=== PATIENT | female | born 1980 | race Caucasian/White ===

== ENCOUNTER 2021-03-23 16:13 | Outpatient (CLI) | payer OTHER, SELFPAY ==
--- NOTE | ~2021-03-23 | XR_ITS ---
XR lumbar spine 2-3V DATE: 03/23/2021 16:50 INDICATION: Back pain. Polyarthralgia. TECHNIQUE: AP, lateral, coned lateral lumbosacral views COMPARISON: None FINDINGS: There is mild levoscoliosis of the lower thoracic and lumbar spine. No fracture or bone destruction or spondylolisthesis. The lumbar pedicles are intact. There is moderately prominent degenerative disc disease at L2-3 and L3-4 and to a lesser extent L4-5. The sacroiliac joints are intact. IMPRESSION: Multilevel degenerative disc disease Mild levoscoliosis Reviewed, dictated and finalized at location A.
--- NOTE | ~2021-03-23 | XR_ITS ---
XR hip BI wo pelvis DATE: 03/23/2021 16:50 INDICATION: Back pain radiating to both hips TECHNIQUE: AP and lateral views of each hip COMPARISON: None FINDINGS: No fracture, dislocation, avascular necrosis or bone destruction of either hip. Hip joint s paces are symmetric and well preserved. The pubic symphysis and sacroiliac joints are intact. IMPRESSION: Negative Reviewed, dictated and finalized at location A. IMPRESSION: Negative
== END 2021-03-23 16:14 | disposition home or self-care (01) ==
LOC: CHSIMG 16:21
PROVIDERS: PCP Internal Medicine; Visit Provider Internal Medicine
DX: M25.50 Pain in unspecified joint (principal); M25.552 Pain in left hip; M25.551 Pain in right hip
CPT/HCPCS: 72100; 73521

== ENCOUNTER 2021-07-09 09:55 | Outpatient (CLI) | payer OTHER, SELFPAY ==
--- NOTE | ~2021-07-09 | XR_ITS ---
EXAMINATION: XR elbow LT min 3V DATE: 07/09/2021 10:12 INDICATION: Left elbow pain TECHNIQUE: Anteroposterior, two oblique and lateral views of the left elbow were obtained. COMPARISON: None. FINDINGS: Alignment is normal. No fracture or joint effusion. Joint spaces are normal. Soft tissues are unremar kable. IMPRESSION: 1. Negative left elbow radiographs. Reviewed, dictated and finalized at location A.
== END 2021-07-09 09:56 | disposition home or self-care (01) ==
LOC: CHSIMG 09:58
PROVIDERS: PCP Internal Medicine; Visit Provider Internal Medicine
DX: M25.522 Pain in left elbow (principal)
CPT/HCPCS: 73080

== ENCOUNTER 2021-09-04 10:36 | Emergency (ER) | payer OTHER, SELFPAY ==
[2021-09-04 11:00] VITALS: BP 123/95; PULSE 72; RESP 18; TEMP 36.3; O2SAT 97
[2021-09-04] MEDS: IBUPROFEN 400 MG TABLET 800 MG PO (11:45)
[2021-09-04] MEDS: LIDOCAINE HCL 2% PF INJ 5 ML VIAL 2 ML INFILTRATE (11:45)
[2021-09-04] MEDS: cefTRIAXone 1 GM VIAL IM (12:10)
--- NOTE | 2021-09-04 12:22 | ED.ANIMALBIT ---
HPI - Animal Bite General Source: patient and RN notes reviewed Mode of arrival: ambulatory Limitations: no limitations History of Present Illness complaint: animal bite (several dog bites to face and nose. no other acute injury) Onset (ago): hour(s) (1) Description of animal: household pet Mechanism: bite Location: face Pain description: dull Severity scale (1-10): 4 Context: other (was grooming the dog.) Associated symptoms: none Treatments prior to arrival: other (none.) Related Data Patient tetanus UTD: Yes Home Medications Medication Instructions Recorded Confirmed Zyrtec 1 caplet BYMOUTH DAILY 09/04/21 09/04/21 escitalopram oxalate 20 mg PO DAILY 09/04/21 09/04/21 Allergies Allergy/AdvReac Type Severity Reaction Status Date / Time Penicillins Allergy Mild ANAPHYLAXIC Verified 03/16/11 10:42 REACTION Sulfa (Sulfonamide Allergy Mild HIVES-FEVER Verified 03/16/11 10:42 Antibiotics) Review of Systems Review of Systems: All systems reviewed & are unremarkable except as noted in HPI and below PMFSH Past Medical History Medical History Dog bite of face Exam Const: General: no acute distress and alert Orientation/consciousness: patient oriented x3 HENMT: Ears: external ears normal and TM's normal bilaterally General nose exam: Normal external nose present Mouth: Yes lip normal Teeth and gingiva: dentition normal Throat: posterior oropharynx normal Other: Right pre-auricular 2/3 cm circular flap superficial laceration; left distal nasal septum 2/3 cm laceration, oozing and minimal gaping; left lower orbit superficial 3/4cm well approximated laceration; left nasolabial fold superficial, well approximated laceration 3/4 cm. Eyes: Conjunctivae: conjunctivae normal Pupils: Equal, round and reactive pupils present EOM: EOMs intact bilaterally Neck: Neck: normal visual inspection and no lymphadenopathy Chest: Chest palpation & inspection: normal inspection of the chest Resp: Effort & Inspection: normal respiratory effort Auscultation: clear to auscultation bilaterally Cardio: Rate: regular rate Rhythm: regular rhythm GI: GI Palp: Yes Soft to palpation and No Tenderness to palpation present (GI) Percussion: Yes normal to percussion Auscultation: normal bowel sounds : General: Yes no CVA tenderness Back/Spine/Pelvis: Back: no CVA tenderness Skin: General skin exam: normal color Neuro: General: patient oriented x3, moves all extremities, no meningeal signs, no focal motor deficits and CN's II-XI intact bilaterally Extrem: General: normal to inspection and no pedal edema Psych: Appearance: well kempt Mental Status: mental status grossly normal Affect: normal affect Attitude: cooperative Thought content: Yes Normal thought content present Course Course Emergency Course: Post laceratios repaired and pain control the pt was d/c home. Reevaluation(s) Reevaluation #1: VSS. pt was comfortable in the ED. Date: 09/04/21 Time: 11:34 Vital Signs Vital signs: Vital Signs Temperature 36.3 C L 09/04/21 11:00 Pulse Rate 72 09/04/21 11:00 Respiratory Rate 18 09/04/21 11:00 Blood Pressure 123/95 H 09/04/21 11:00 Pulse Oximetry 97 09/04/21 11:00 Temperature 36.3 C L 09/04/21 12:46 Pulse Rate 72 09/04/21 12:46 Respiratory Rate 20 09/04/21 12:46 Blood Pressure 133/96 H 09/04/21 12:46 Pulse Oximetry 97 09/04/21 12:46 Procedures Laceration 4 facial lacerations: Date: 09/04/21 Time: 11:30 Site: face (1. right pre-auricular 2/3 cm. 2. right distal nasal septum 2/3 cm lac. 3. Left lower orbit 3/4 cm lac. 4. left naso-labial 3/4 cm lac.) Side (If applicable): left and right Size (cm): 0.66 Description: linear, flap, irregular and clean Depth: simple, single layer Local Anesthetic: lidocaine 2% Amount of anesthesia used (mL): 1
[2021-09-04 12:46] VITALS: BP 133/96; PULSE 72; RESP 20; TEMP 36.3; O2SAT 97
== END 2021-09-04 12:56 | disposition home or self-care (01) ==
PROVIDERS: Emergency Provider Emergency Medicine; PCP Internal Medicine
DX: S01.85XA Open bite of other part of head, initial encounter (principal); W54.0XXA Bitten by dog, initial encounter
CPT/HCPCS: 13151; 96372; 99283; A9270; J0696

== ENCOUNTER 2022-02-23 08:35 | Outpatient (CLI) | payer OTHER, SELFPAY ==
--- NOTE | ~2022-02-23 | MR_ITS ---
EXAMINATION: MR hip LT wo con DATE: 02/23/2022 09:39 INDICATION: Left hip pain TECHNIQUE: Magnetic resonance imaging (MRI) of the left hip was performed without intravenous contra st. Sequences included full-field axial PD-weighted FS FSE and T1-weighted FSE, coronal of the pelvis with PD-weighted FS FSE, small field of view of the left hip with axial PD-weighted FS FSE, sagitta l PD-weighted FS FSE and coronal PD weighted FS FSE. Additional radial T1-weighted FGR oriented ortho gonal to the acetabular rim were obtained for evaluation of the labrum. COMPARISON: Radiographs dated 03/23/2021 FINDINGS: Bones/labrum/cartilage: Alignment is normal. There is a serpiginous double line sign underlying the majority of the acetabula r covered portion of the left femoral head consistent with avascular necrosis. No evident flattening of the articular cortex. No fracture or pathologic marrow replacing process. Left acetabular labrum i s normal. Articular cartilage is normal. Fluid: Unilateral small left hip joint effusion. No bursitis or other abnormal fluid collections. Soft tissues: Normal and symmetric muscle bulk and signal in the pelvis and visualized proximal thighs. The iliopso as, gluteal and proximal hamstring tendons are normal. The uterus is not identified and has likely be en surgically resected. Limited evaluation of visceral organs of the pelvis is otherwise unremarkable . No pathologically enlarged pelvic/inguinal lymphadenopathy. IMPRESSION: 1. 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 Reviewed, dictated and finalized at location A.
== END 2022-02-23 08:36 | disposition home or self-care (01) ==
LOC: CHSIMG 08:38
PROVIDERS: PCP Internal Medicine; Visit Provider Internal Medicine
DX: M25.552 Pain in left hip (principal); M87.9 Osteonecrosis, unspecified
CPT/HCPCS: 73721

== ENCOUNTER 2022-03-30 06:55 | Outpatient (CLI) | payer OTHER, SELFPAY ==
--- NOTE | ~2022-03-30 | MR_ITS ---
EXAMINATION: MR lumbar spine wo con DATE: 03/30/2022 08:13 INDICATION: Back pain with radiculopathy. TECHNIQUE: Magnetic resonance imaging (MRI) of the lumbar spine was performed without intravenous con trast. Sequences included sagittal T2-weighted FSE, sagittal T2-weighted FS FSE, sagittal T1-weighted FSE, and axial T2-weighted FSE. COMPARISON: Lumbar spine radiographs 03/23/2021 FINDINGS: There is 13 degrees levoscoliosis of lumbar spine. Vertebral body heights are normal. There is mildly decreased disc height at L2-L3 and L3-L4 and moderately decreased disc height at L4-L5. Th e distal spinal cord signal intensity is normal. The conus medullaris is at L1. The following disc le vels are specifically discussed: L1-L2: The disc does not extend beyond the endplate margin. There is no facet joint osteoarthritis. T here is no neural foraminal stenosis. There is no central canal stenosis. L2-L3: The disc is bulging. There is mild bilateral facet joint osteoarthritis. There is mild bilater al neural foraminal stenosis. There is mild central canal stenosis. L3-L4: The disc is bulging. There is mild bilateral facet joint osteoarthritis. There is mild bilater al neural foraminal stenosis. There is mild central canal stenosis. L4-L5: The disc is bulging and has an annular fissure. There is moderate right and mild left facet cheryl int osteoarthritis. There is moderate bilateral neural foraminal stenosis. There is mild central marline l stenosis. L5-S1: The disc does not extend beyond the endplate margin. There is moderate bilateral facet joint o steoarthritis. There is no neural foraminal stenosis. There is no central canal stenosis. IMPRESSION: 1. Moderate lumbar spondylosis. 2. Lumbar levoscoliosis. Reviewed, dictated and finalized at location A.
--- NOTE | ~2022-03-30 | MR_ITS ---
EXAMINATION: MR hip RT wo con DATE: 03/30/2022 08:13 INDICATION: Back pain with radiculopathy. Right hip avascular necrosis. TECHNIQUE: Magnetic resonance imaging (MRI) of the right hip was performed without intravenous contr ast. Sequences included full-field axial PD-weighted FS FSE and T1-weighted FSE, coronal of the pelvi s with PD-weighted FS FSE, small field of view of the right hip with axial PD-weighted FS FSE, sagit wan PD-weighted FS FSE and coronal PD weighted FS FSE. Additional radial T1-weighted FGR oriented ort hogonal to the acetabular rim were obtained for evaluation of the labrum. COMPARISON: Left hip MRI dated 02/23/2022 FINDINGS: Bones/labrum/cartilage: Bone alignment is normal. No significant interval change in edema at the left femoral head associated with a large region of osteonecrosis without evident collapse of the articular cortex. Marrow signal is otherwise normal. No osteonecrosis at the right hip. There is a tear along the chondral labral ju nction slightly anterior to the 12:00 position of the superolateral right acetabular labrum as well a s more anteriorly at the 1:00 position of the anterosuperior labrum. Articular cartilage is otherwis e normal at the right hip. Fluid: Persistent unilateral small left hip joint effusion. No bursitis or other abnormal fluid collections. Soft tissues: Normal and symmetric muscle bulk and signal in the pelvis and visualized proximal thighs. The iliopso as, gluteal and proximal hamstring tendons are normal. The uterus is not identified and has likely be en surgically resected. Limited evaluation of visceral organs of the pelvis is otherwise unremarka ble. No pathologically enlarged pelvic/inguinal lymphadenopathy. IMPRESSION: 1. Small tears at the chondral labral junction of the anterosuperior and superolateral right acetabul ar labrum. 2. Unchanged avascular necrosis at the left femoral head without evident collapse of the articular hammond rface but with likely secondary unilateral small left hip joint effusion. No avascular necrosis at th e right hip. Reviewed, dictated and finalized at location B. IMPRESSION: 1. Small tears at the chondral labral junction of the anterosuperior and supero lateral right acetabular labrum. 2. Unchanged avascular necrosis at the left femoral head without evident collap se of the articular surface but with likely secondary unilateral small left hip joint effusion. No avascular necrosis at the right hip.
== END 2022-03-30 06:56 | disposition home or self-care (01) ==
LOC: CHSIMG 06:56
PROVIDERS: PCP Internal Medicine; Visit Provider Internal Medicine
DX: M54.9 Dorsalgia, unspecified (principal); M54.10 Radiculopathy, site unspecified
CPT/HCPCS: 72148; 73721

== ENCOUNTER 2022-11-06 10:12 | Outpatient (CLI) | payer OTHER, SELFPAY ==
[2022-11-06 10:42] LABS: Basophils Absolute Auto 0.08 K/mm3 (0.00-0.10); Basophils Percent Auto 0.8 % (0.0-1.0); Eosinophils Absolute Auto 0.53 K/mm3 (0.02-0.50); Eosinophils Percent Auto 5.5 % (1.0-6.0); Hemoglobin 14.2 g/dL (12.0-15.0); Immature Granulocyte Absolute 0.03 K/mm3 (0.00-0.00); Immature Granulocyte Percent A 0.3 % (0.0-0.0); Lymphocytes Absolute Auto 3.23 K/mm3 (1.10-4.50); Lymphocytes Percent Auto 33.5 % (18.0-42.0); Mean Corpuscular HGB Conc 33.8 g/dL (32.0-36.0); Mean Corpuscular Hemoglobin 30.9 pg (27.0-31.0); Mean Corpuscular Volume 91.5 fL (78.0-102.0); Monocytes Absolute Auto 0.65 K/mm3 (0.10-0.90); Monocytes Percent Auto 6.7 % (2.0-11.0); Neutrophils Absolute Auto 5.1 K/mm3 (1.7-7.2); Neutrophils Percent Auto 53.2 % (50.0-70.0); Platelet Count Result 335 K/mm3 (150-420); Red Blood Count 4.59 M/mm3 (4.20-5.40); Red Cell Distribution Width 12.5 % (11.6-14.4); White Blood Count 9.7 K/mm3 (4.8-10.8)
[2022-11-06 10:55] LABS: CRP < 0.5 mg/dL (0.0-0.9)
[2022-11-06 11:30] LABS: Erythrocyte Sedimentation Rate 13 mm/hr (0-15)
== END 2022-11-06 10:13 | disposition home or self-care (01) ==
LOC: CHSLAB 10:15
PROVIDERS: PCP Internal Medicine
DX: Z01.818 Encounter for other preprocedural examination (principal)
CPT/HCPCS: 36415; 85025; 85652; 86140

== ENCOUNTER 2023-04-11 08:57 | Outpatient (RCR) | payer OTHER, SELFPAY ==
--- NOTE | 2023-04-11 10:04 | OPREHPOC ---
Outpatient Therapy Plan of Care This is a Multidisciplinary Plan of Care that may contain components documented by all disciplines (PT, OT, and ST.) PT Problem 1 PT Problem #1 Knowledge Deficit PT Goal 1 Goal Patient to demonstrate independence with HEP Target Visit 6 PT Problem 2 PT Problem #2 Pain PT Goal 1 Goal 1. patient to report highest pain at 2/10 2. patient to report ability to sleep with no disturbance due to hip pain Target Visit 12 PT Problem 3 PT Problem #3 Impaired Flexibility PT Goal 1 Goal Patient to demonstrate 20 deg of L HS flexibility to improve ability to ambulate for prolonged periods Target Visit 12 Progress Met PT Problem 4 PT Problem #4 Impaired Strength PT Goal 1 Goal Patient to demonstrate 5/5 strength of L LE to improve ability to navigate stairs Target Visit 12 PT Problem 5 PT Problem #5 Impaired Functional Mobil PT Goal 1 Goal 1. Patient to report ability to stand for >2 hours for work duties 2. Patient to report ability to complete house hold chores with no increase in pain Target Visit 12
--- NOTE | 2023-04-11 10:04 | PTOPEVAL1 ---
Assessment and note entered by Corinne Michel DPT Evaluation Information Diagnosis L hip pain Onset 08/05/22 Subjective Information Patient reports she had a hip replacement on 08/05 following AVN. She reports she had home health for about 6 weeks. She reports she has had pain since. She reports difficulty with steps, walking prolonged distances, sleeping and standing for house hold tasks. She report she was able to complete all activities but did have pain prior to surgery. 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 She sees pain management on 04/21/23. Reported Pain Level Pain Score 6: Self Report Assessment PT Clinical Summary Patient is a 43 year old female who presents to PT with L hip pain s/p CLOTILDE in July 2022. Patient tdemonstrates decrease L hip strength, decreased L hip flexibility and impaired gait mechanincs limiting her ability to navigate stairs, sleep, and complete house hold tasks. She would benefit from skilled PT to address impairments and return to PLOF. Plan of Care Interventions Electrical Stimulation,Gait Training,Hot Pack/Cold Pack,Manual Therapy,Neuro Re-education,Patient/ Caregiver Educati,Therapeutic Activities, Therapeutic Exercise,Self-Care/Home Management PT Services Indicated Yes Treatment Frequency and 2x weekly for 12 visits Duration These treatments will address the objective and functional deficits as defined above. The patient will be advanced safely and appropriately in order for the patient to progress towards his/her prior level of function. Additional exercises will be introduced and as well as a comprehensive home exercise program upon discharge, if needed, ?to ensure carryover of functional gains achieved in the clinic. This treatment plan has been reviewed and agreement upon by the patient.
== END 2023-04-11 11:00 | disposition home or self-care (01) ==
LOC: CHSPT 08:57
PROVIDERS: Visit Provider Orthopaedic Surgery
DX: Z47.1 Aftercare following joint replacement surgery (principal); Z48.817 Encounter for surgical aftercare following surgery on the skin and subcutaneous tissue; Z96.642 Presence of left artificial hip joint
CPT/HCPCS: 97014; 97110; 97140; 97161; G0283

== ENCOUNTER 2023-10-04 19:40 | Emergency (ER) | payer OTHER, SELFPAY ==
--- NOTE | ~2023-10-04 | XR_ITS ---
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 RESULT: Lines, tubes, and devices: None. Lungs and pleura: Granulomatous calcification, otherwise clear. Cardiomediastinal silhouette: Prominent central pulmonary arteries as can be seen with pulmonary art erial hypertension. Other: No acute osseous or upper abdominal finding. IMPRESSION: No acute cardiopulmonary process. Reviewed, dictated and finalized at location K. IANCE COUNSELOR
[2023-10-04 19:40] VITALS: BP 118/76; PULSE 81; RESP 20; TEMP 36; O2SAT 98
--- NOTE | 2023-10-04 19:52 | ED.ALLEREA ---
HPI - Allergic Reaction General Chief complaint: Allergic Reaction Stated complaint: allergic reaction Time Seen by Provider: 10/04/23 19:41 Source: patient Mode of arrival: ambulatory Limitations: no limitations History of Present Illness HPI narrative: Patient is a 43-year-old female with new Omnicef today. She had a bronchitis and her doctor gave her this medication. She is having a flare of her asthma at this time. Some shortness of breath and coughing. She feels this is possibly an allergic reaction. complaint: allergic reaction Onset (ago): hour(s) (3) Exposure: medication Known history of allergy to: Penicillin allergy which can cross react to Omnicef from time to time Symptoms: difficulty breathing Severity: mild Treatment prior to arrival: benadryl Previous Allergic Reaction History: anaphylaxis Related Data Home Medications Medication Instructions Recorded Confirmed Zyrtec 1 caplet BYMOUTH DAILY 09/04/21 09/04/21 Allergies Allergy/AdvReac Type Severity Reaction Status Date / Time cefdinir Allergy Severe Difficulty Verified 10/04/23 20:08 Breathing Penicillins Allergy Severe ANAPHYLAXIC Verified 10/04/23 20:08 REACTION Sulfa (Sulfonamide Allergy Intermediate HIVES-FEVER Verified 10/04/23 20:08 Antibiotics) Review of Systems Review of Systems: All systems reviewed & are unremarkable except as noted in HPI and below Constitutional: Constitutional: Reports no additional constitutional complaints Eyes: Eyes: Reports no additional eye complaints ENT: Reports system reviewed and no additional complaints, except as documented Cardiovascular: Cardiovascular: Reports no additional cardiovascular complaints Respiratory: Respiratory: Reports no additional respiratory complaints Gastrointestinal: Gastrointestinal: Reports no additional gastrointestinal complaints Genitourinary: Genitourinary: Reports no additional female genitourinary complaints Musculoskeletal: Musculoskeletal: Reports no additional musculoskeletal complaints Integumentary/Breasts: Skin/Breast: Reports system reviewed and no additional complaints, except as docu Neurologic: Reports system reviewed and no additional complaints, except as documented Psychiatric: Psychiatric: Reports no additional psychiatric complaints Endocrine: Endocrine: Reports no additional endocrine complaints Hematologic/Lymphatic: Hematologic/Lymphatic: Reports no additional hematologic/lymphatic complaints Allergic/Immunologic: Allergic/Immunologic: Reports no additional allergic/immunologic complaints PMFSH Past Medical History Medical History Dog bite of face Exam Const: General: healthy appearing Nutritional Appearance: well nourished Orientation/consciousness: patient oriented x3 HENMT: Head: normal to inspection Ears: external ears normal Face/Nose/Sinus: Normal external nose present Eyes: Conjunctivae: conjunctivae normal Pupils: Equal, round and reactive pupils present EOM: EOMs intact bilaterally Neck: Neck: normal visual inspection Chest: Chest palpation & inspection: normal inspection of the chest Resp: Effort & Inspection: normal respiratory effort and not labored Auscultation: clear to auscultation bilaterally, no crackles, rhonchi, wheezes and diminished lung sounds Cardio: Rate: regular rate Rhythm: regular rhythm Heart sounds: no murmurs GI: Inspection: non-distended GI Palp: Yes Soft to palpation, No Tenderness to palpation present (GI) and No Guarding due to palpation present (GI) Auscultation: normal bowel sounds : General: Yes bladder normal to palpation Back/Spine/Pelvis: Back: no CVA tenderness Skin: General skin exam: normal color Rashes: no rashes Wounds: no wounds Neuro: General: patient oriented x3 Cranial nerves: Yes Nystagmus not present Speech: normal speech Extrem: General: normal to inspection Psych: Mental Stat
[2023-10-04] MEDS: predniSONE 20 MG TABLET 40 MG PO (19:57)
[2023-10-04] MEDS: ALBUTEROL SULFATE NEB 2.5 MG/3 ML INH INHALATION (20:01)
[2023-10-04] MEDS: DOXYCYCLINE HYCLATE 100 MG TABLET PO (20:51)
[2023-10-04 21:33] VITALS: PULSE 94; RESP 20; O2SAT 98
== END 2023-10-04 22:12 | disposition home or self-care (01) ==
LOC: CHSED 20:13
PROVIDERS: Emergency Provider Emergency Medicine; PCP Internal Medicine
DX: J40 Bronchitis, not specified as acute or chronic (principal); T78.40XA Allergy, unspecified, initial encounter
CPT/HCPCS: 71046; 99283; A9270; J7512

== ENCOUNTER 2023-12-01 09:18 | Outpatient (CLI) | payer OTHER, SELFPAY ==
--- NOTE | ~2023-12-01 | MR_ITS ---
MRI of the lumbar spine Clinical History: Back pain Technique: Axial T2-weighted images, and sagittal T1-weighted, T2-weighted, and and T2 fat-sat images were acquired. Findings: There is no fracture or subluxation of the lumbar spine. Vertebral bodies maintain normal h eight and alignment. No suspicious bone marrow signal abnormality seen. At L1-L2, there is minimal disc bulge. There is minimal facet arthropathy. No central canal stenosis or neural foraminal narrowing. At L2-L3, there is minimal disc bulge and mild facet arthropathy. No central canal stenosis or neural foraminal narrowing. At L3-L4, there is mild disc bulge and mild to moderate facet arthropathy. No central canal stenosis. There is mild bilateral neural foraminal narrowing. At L4-L5, there is mild disc bulge with mild to moderate facet arthropathy. No central canal stenosis . There is moderate to severe left neural foraminal narrowing, and moderate right neural foraminal na rrowing. At L5-S1, there is no disc bulge or herniation. There is mild to moderate facet arthropathy. No centr al canal stenosis or neural foraminal narrowing. Paravertebral soft tissues are unremarkable. Impression: Mild degenerative spondylosis overall, as detailed above, worst at L4-L5. Reviewed, dictated and finalized at [facility]. HEALTH RN Impression: Mild degenerative spondylosis overall, as detailed above, worst at L4-L5.
== END 2023-12-01 09:19 | disposition home or self-care (01) ==
LOC: CHSIMG 09:21
PROVIDERS: PCP Internal Medicine
DX: M54.50 Low back pain, unspecified (principal); M43.06 Spondylolysis, lumbar region
CPT/HCPCS: 72148

== ENCOUNTER 2024-03-13 19:19 | Emergency (ER) | payer OTHER, SELFPAY ==
--- NOTE | ~2024-03-13 | XR_ITS ---
EXAM: XR hand LT min 3V DATE: 03/13/2024 19:30 HISTORY: 3RD DIGIT PAIN,FLICKED SOMETHING AND HURTS NOW . COMPARISON: None available. FINDINGS: Normal mineralization. No fracture or dislocation. No lytic or blastic lesion. Joint space s are maintained. No erosion or periosteal change. Soft tissues within normal limits. IMPRESSION: No acute osseous finding in the left hand. Reviewed, dictated and finalized at location K.
[2024-03-13 19:18] VITALS: BP 116/85; PULSE 85; RESP 18; TEMP 36.6; O2SAT 100
--- NOTE | 2024-03-13 19:26 | ED.UPPEXIN ---
HPI - Extremity Injury (Upper) General Chief Complaint: Extremity Injury, Upper Stated Complaint: Left middle finger incident Time Seen by Provider: 03/13/24 19:21 Source: patient Mode of arrival: ambulatory Limitations: no limitations History of Present Illness HPI narrative: Patient is a 43-year-old female with a left hand injury after flicking a bug. She flicked a bug with her middle finger and started to have pain at the MCP joint. MD complaint: injury to: left, hand and finger ( Middle MCP joint) Onset (ago): hour(s) (2) Other Extremity Injury: Left: fingers and hand Other injuries: none Place: outdoors Severity: moderate Severity scale (1-10): 4 Relieving factors: immobilization Exacerbating factors: movement of extremity Context: injury Associated symptoms: denies other symptoms Treatments prior to arrival: cold therapy Related Data Home Medications Medication Instructions Recorded Confirmed Zyrtec 1 caplet BYMOUTH DAILY 09/04/21 03/13/24 Allergies Allergy/AdvReac Type Severity Reaction Status Date / Time cefdinir Allergy Severe Difficulty Verified 10/04/23 20:08 Breathing Cephalosporins Allergy Severe Difficulty Verified 10/04/23 22:16 Breathing Penicillins Allergy Severe ANAPHYLAXIC Verified 10/04/23 20:08 REACTION Sulfa (Sulfonamide Allergy Intermediate HIVES-FEVER Verified 10/04/23 20:08 Antibiotics) Review of Systems Review of Systems: All systems reviewed & are unremarkable except as noted in HPI and below Constitutional: Constitutional: Reports no additional constitutional complaints Eyes: Eyes: Reports no additional eye complaints ENT: Reports system reviewed and no additional complaints, except as documented Cardiovascular: Cardiovascular: Reports no additional cardiovascular complaints Respiratory: Respiratory: Reports no additional respiratory complaints Gastrointestinal: Gastrointestinal: Reports no additional gastrointestinal complaints Genitourinary: Genitourinary: Reports no additional female genitourinary complaints Musculoskeletal: Musculoskeletal: Reports no additional musculoskeletal complaints Integumentary/Breasts: Skin/Breast: Reports system reviewed and no additional complaints, except as docu Neurologic: Reports system reviewed and no additional complaints, except as documented Psychiatric: Psychiatric: Reports no additional psychiatric complaints Endocrine: Endocrine: Reports no additional endocrine complaints Hematologic/Lymphatic: Hematologic/Lymphatic: Reports no additional hematologic/lymphatic complaints Allergic/Immunologic: Allergic/Immunologic: Reports no additional allergic/immunologic complaints PMFSH Past Medical History Medical History Dog bite of face Exam Const: General: healthy appearing Nutritional Appearance: well nourished Orientation/consciousness: patient oriented x3 HENMT: Head: normal to inspection Ears: external ears normal Face/Nose/Sinus: Normal external nose present Eyes: Conjunctivae: conjunctivae normal Pupils: Equal, round and reactive pupils present EOM: EOMs intact bilaterally Neck: Neck: normal visual inspection Chest: Chest palpation & inspection: normal inspection of the chest Resp: Effort & Inspection: normal respiratory effort and not labored Auscultation: clear to auscultation bilaterally Cardio: Rate: regular rate Rhythm: regular rhythm Heart sounds: no murmurs GI: Inspection: non-distended GI Palp: Yes Soft to palpation and No Tenderness to palpation present (GI) Auscultation: normal bowel sounds : General: Yes bladder normal to palpation Back/Spine/Pelvis: Back: no CVA tenderness Skin: General skin exam: normal color Rashes: no rashes Wounds: no wounds Neuro: General: patient oriented x3 Cranial nerves: Yes Nystagmus not present Speech: normal speech Gait exam (Neuro): Normal gait present Extrem: General: abnor
== END 2024-03-13 20:20 | disposition home or self-care (01) ==
PROVIDERS: Emergency Provider Emergency Medicine; PCP Internal Medicine
DX: S63.92XA Sprain of unspecified part of left wrist and hand, initial encounter (principal); X50.0XXA Overexertion from strenuous movement or load, initial encounter
CPT/HCPCS: 73130; 99283

== ENCOUNTER 2024-10-18 14:59 | Outpatient (CLI) | payer OTHER, SELFPAY ==
--- NOTE | 2024-10-18 15:06 | ECHO_ITS ---
Patient Info Name: Mahi Lopez Age: 44 years : 1980 Gender: Female Ht: 67 in Wt: 177 lbs BSA: 1.97 m2 HR: 85 bpm BP: 115 / 60 mmHg Technical Quality: Excellent Exam Date: 10/18/2024 3:12 PM Exam Location: Echo Lab Patient Status: Outpatient Admit Date: 10/18/2024 Staff Ordering Physician: [place], Candy Mazariegos APRN Automatic Door Mechanic: Lacey Abarca RDCS Attending Provider: [place], Candy Mazariegos APRN Referring Physician: Ayde DIAZ; Exam Type: CA echo doppler color flow Study Info Complete two-dimensional, color flow and Doppler transthoracic echocardiogram is performed. Summary 1. Complete two-dimensional, color flow and Doppler transthoracic echocardiogram is performed. 2. Left ventricular chamber dimension is normal. 3. Left ventricular systolic function is normal, estimated at 60-65%. 4. The left ventricular diastolic function is normal. 5. E/e' 8 is minimally elevated. 6. There is mild tricuspid valve regurgitation. 7. No pulmonary hypertension, estimated pulmonary arterial systolic pressure is 26 mmHg. Left Ventricle E/e' 8 is minimally elevated. Left ventricular chamber dimension is normal. Left ventricular systolic function is normal, estimated at 60-65%. The left ventricular diastolic function is normal. Right Ventricle Right ventricular systolic function is normal and with normal TAPSE 2.2 cm. Right ventricular chamber dimension is normal. Left Atria Left atrial chamber dimension is normal. Right Atria Right atrial chamber dimension is normal. Aortic Valve The aortic valve is trileaflet. There is no aortic valve stenosis. There is no aortic valve regurgitation. Pulmonic Valve There is no pulmonic regurgitation. Mitral Valve There is no mitral valve stenosis. There is no mitral valve regurgitation. Tricuspid Valve There is mild tricuspid valve regurgitation. No pulmonary hypertension, estimated pulmonary arterial systolic pressure is 26 mmHg. Pericardium/Pleural There is no pericardial effusion. Inferior Vena Cava Normal inferior vena cava with >50% collapse upon inspiration consistent with normal right atrial pressure, 5 mmHg. Aorta The aortic root size at the sinus of Valsalva is normal. Left Ventricular Outflow Tract Name Value Normal LVOT 2D LVOT Diameter 2.2 cm LVOT Doppler LVOT Peak Velocity 91 cm/s LVOT Peak Gradient 3 mmHg LVOT Mean Gradient 2 mmHg LVOT VTI 19 cm LVOT VTI/AV VTI Ratio 1.0 LVOT Stroke Volume 76 ml Pulmonic Valve Name Value Normal PV Doppler PV Peak Velocity 86 cm/s PV Peak Gradient 3 mmHg Mitral Valve Name Value Normal MV Doppler MV Peak Gradient 3 mmHg MV Mean Gradient 1 mmHg MV Decel [place] 429 cm/s2 MV PHT 55 ms MV Area (PHT) 4.0 cm2 4.0-5.0 MV Area (Cont Eq VTI) 2.9 cm2 MV Diastolic Function MV E Peak Velocity 81 cm/s MV A Peak Velocity 67 cm/s MV E/A 1.2 MV Decel Time 189 ms Tricuspid Valve Name Value Normal TV Regurgitation Doppler TR Peak Velocity 231 cm/s TR Peak Gradient 20 mmHg Estimated PAP/RSVP RA Pressure 5 mmHg <=5 PA Systolic Pressure 26 mmHg <36 RV Systolic Pressure 26 mmHg <36 Aortic Valve Name Value Normal AV Doppler AV Peak Velocity 111 cm/s AV Peak Gradient 5 mmHg AV Mean Gradient 3 mmHg AV VTI 19 cm AV Area (Cont Eq VTI) 4.1 cm2 >=3.0 AV Area (Cont Eq David) 3.2 cm2 AV V1/V2 Ratio 0.82 AV Regurgitation 2D LVOT Area 3.9 cm2 Ventricles Name Value Normal LV Dimensions 2D/MM LVOT Diameter 2.2 cm LV Fractional Shortening/Ejection Fraction 2D/MM LV Diastolic Volume (4C MOD) 107 ml LV EF (4C MOD) 63 % LV Diastolic Length (4C) 7.9 cm LV Systolic Length (4C) 6.5 cm LV Stroke Volume (4C MOD) 68 ml Atria Name Value Normal LA Dimensions LA Volume (4C A-L) 37 ml RA Dimensions RA Area (4C) 14.9 cm2 <=18.0 Report Signatures
== END 2024-10-18 15:00 | disposition home or self-care (01) ==
PROVIDERS: PCP Nurse Practitioner Family; Visit Provider Nurse Practitioner Family
DX: R07.81 Pleurodynia (principal); R07.9 Chest pain, unspecified; R00.2 Palpitations; I07.1 Rheumatic tricuspid insufficiency
CPT/HCPCS: 93306

== ENCOUNTER 2025-04-17 09:46 | Outpatient (CLI) | payer OTHER, SELFPAY ==
--- NOTE | ~2025-04-17 | NM_ITS ---
EXAMINATION: NM nina stress w perfusion DATE: 04/17/2025 13:10 INDICATION: Chest pain TECHNIQUE: Rest images were obtained following intravenous administration of 10.6 mCi Tc99m tetrofosm in (Myoview). The patient was infused intravenously with Lexiscan (Regadenoson). Then, 33 mCi Tc99m t etrofosmin (Myoview) was administered intravenously, and stress images were obtained. Data was recons tructed into short axis and horizontal and vertical long axis SPECT images. Gated SPECT images were a lso obtained. COMPARISON: None. FINDINGS: There is no definite reversible or fixed perfusion abnormality to suggest ischemia or infar ction. There is normal left ventricular chamber size, wall motion and ejection fraction. Left ventr icular ejection fraction measures 70%. IMPRESSION: 1. Normal myocardial perfusion at rest and during stress. 2. Left ventricular ejection fraction measuring 70%. Reviewed, dictated and finalized at location A.
--- OUTSIDE RECORDS SUMMARY | 2025-04-17 09:51 | XMS_ITS | Clinical Summary ---
Author Organization [facility] Address [address] [place] [address] Care Team Providers Care Seo Intern Name Role Phone Pierre Sher MD Primary Care Provider [phone] Allergies Active Allergy Reactions Criticality Noted Date Comments Penicillins Anaphylaxis High 04/28/2022 Sulfa (Sulfonamide Antibiotics) Hives Medium 04/10 Medications omeprazole (PriLOSEC) 20 mg capsule Take 1 capsule (20 mg total) by mouth every morning Active cetirizine (ZyrTEC) 10 mg tablet Take 1 tablet (10 mg total) by mouth every morning Active calcium citrate-vitamin D3 (CITRACAL+D) 315 mg-5 mcg (200 unit) per tablet Take 2 tablets by mouth every morning Active ascorbic acid/vitamin E/biotin (HAIR, SKIN, NAILS WITH BIOTIN ORAL) Take 1 tablet by mouth daily Active B3/B5/B6/B7/fol ic/B12/inosit/C (B COMPLEX-VITAMIN C ORAL) Take 1 tablet by mouth daily Active traMADoL (ULTRAM) 50 mg tablet Take 1 tablet (50 mg total) by mouth every 6 (six) hours 10 tablet 4 Active Additional Information Patient not taking.Reported on 11/09/2024 gabapentin (NEURONTIN) 300 mg capsule Take 1 capsule (300 mg total) by mouth nightly for 14 days 14 capsule 4 Active Active Problems Problem Noted Date Diagnosed Date At high risk for breast cancer 02/19/2025 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 07/26/2024 Genetic predisposition to breast cancer 07/11/20 24 S/P total left hip arthroplasty 08/30/2022 Overview (08/30/2022): Added automatically from request for surgery [id number] Osteonecrosis of left hip 05/26/2022 Overview (05/26/2022): Added automatically from request for surgery [id number] Encounters Date Type Department Care Team Description 02/19/2025 Telephone [facility] Surgery [address] [facility] 6th [place] [address] [place] [address] Ant Patiño MD from Last 3 Months Immunizations Immunization Administration Dates Next Due Influenza, Quadrivalent, Spl it, Preservative Free, Intramuscular 10/21/2021,09/25/2020 Tdap 11/26/2020 Surgical History Surgery Date Site/Laterality Comments HYSTERECTOMY 03/24/2011 LASIK June 2020 HALO APPLICATION 1998, C2-C3 HIP ARTHROPLASTY 08/05/2022 Left JOINT REPLACEMENT FL UPPER GI AIR CONTRAST W KUB 02/06/2024 Left TONSILLECTOMY/ADENOIDECTOMY Medical History Medical History Date Comments Arthritis 03/2004 neck and hip Migraines As a child 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 Family History Medical History Relation Name Comments Arthritis Father Anderson Clotting disorder Father Anderson Heart disease Father Anderson Breast cancer Maternal Grandmother Ovarian cancer Maternal Grandmother Breast cancer Maternal Great-Grandmother Arthritis Mother Luciana Brain cancer Mother Luciana Breast cancer Mother Luciana Cancer Mother Luciana Kidney cancer Mother Luciana Lung cancer Mother Luciana Ovarian cancer Mother Luciana Alzheimer's disease Paternal Grandfather Rubin Anesthesia problems Neg Hx Relation Name Status Comments Father Anderson Maternal Grandmother Maternal Great-Grandmother Mother Luciana Paternal Grandfather Rubin Social History Tobacco Use Types Packs/Day Years Used Date Smoking Tobacco: Former Cigarettes 1 15 0 10/10/2001 - 10/10/2016 Smokeless Tobacco: Never Tobacco Cessation:Counseling Given: Not Answered AUDIT-C Answer Date Recorded Q1: How often do you have a drink containing alc ohol? Never 08/30/2022 Average Number of Drinks Not on file 022 Q3: How often do you have si x or more drinks on one occasion? Never 08/30/2022 Personal Safety Answer Date Recorded Have you ever been in or are you currently in a harmful physical or emotional relationship or is someone making you feel afraid or unsafe? 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 Gender Identity Female 03/27/2022 4:40 PM CDT Sexual Orientation Straight 03/27/2022 4: 40 PM CDT Obstetrics History Last Filed Vital Signs Vital Sign Reading Time Taken Comments Blood Pressure 117/77 08/07/2024 10:04 AM CDT Pulse 74 08/07/2024 10:04 AM CDT Temperature 36.3 C (97.3 F) 08/07/2024 9:09 AM CDT Respiratory Rate 20 08/07/2024 10:04 AM CDT Oxygen Saturation 93% 08/07/2024 10:04 AM CDT Inhaled Oxygen Concentration - - Weight 77.6 kg (171 lb) 08/07/2024 6:12 AM CDT Height 170.2 cm (5' 7) 08/07/2024 6:12 AM CDT Body Mass Index 26.78 08/07/2024 6:12 AM CDT Plan of Treatment Upcoming Encounters Date Type Department Care Team (Latest Contact Info) Description 07/11/2025 7:30 AM CDT Hospital Encounter [facility]) [address] [place] [address] Ant Patiño MD [address] [place] [address] 07/11/2025 7:30 AM CDT - 07/11/2025 11:10 AM CDT Surgery [facility] ([facility]) [address] [place] [address] Ant Patiño MD [address] [place] [address] (COMBO KARISSA / SHE) RECONSTRUCTION BREAST-immediate breast recon Scheduled Procedures Name Priority Associated Diagnoses Date/Ti me RECONSTRUCTION BREAST At high risk for breast cancer 07/11/2025 7:30 AM CDT INSERTION TISSUE MOVE COORDINATOR - BREAST At high risk for breast cancer 07/11/2025 7:30 AM CDT MASTECTOMY SIMPLE At high risk for breast cancer 07/11/2025 7:30 AM CDT Health Maintenance Due Date Last Done Comments Depression Screening 1980 Hepatitis C Screening 1980 Varicella Vaccines (1 of 2 - 13+ 2-dose series) 1995 Hepatitis B Screening 2000 Regular Well Visit/Exam 18-64 2000 Covid-19 Vaccine (4 - 2023-2 5 season) 2024 10/24/2021, 05/25/2021, 05/04/2021 Breast Cancer Screening-Mammogram 05/11/2025 05/11/2024 Influenza Vaccine (Season Ended) 2025 10/21/2021, 09/25/2020 DTaP/Tdap/Td Vaccine (2 - Td or Tdap) 11/26/2030 11/26/2020 HPV Vaccines Aged Out No longer eligi ble based on patient's age to complete this topic Pneumococcal vaccine <65 Aged Out No longer eligible based on patient's age to complete this topic Goals Goal Patient Goal Type Associated Problems Recent Progress Patient-Stated? Author Autogenerat ed Goal Care Plan Autogenerated Problem No Cross [employer] Implanted Type Area Hand Drawer In Device Identifier Shelf Expiration Date Model / Serial / Lot [employer] Screw Bone Trident Ii L25mm Od6.5mm Low Profile Hexagonal Sterile [id number] - [id number] Implanted:Qty: 1 on 08/05/2022 by Cora Alston MD at [facility] Screw Left: Hip [employer] [id number] 07/08/2027 [id number] / / [id number] [employer] Shell Acetabular Trident Ii Tritanium D Od48mm Hip 3 Screw Hole Cluster Sterile 702-04-48d - [id number] - [id number] Implanted:Qty: 1 on 08/05/2022 by Cora Alston MD at [facility] Left: Hip [employer] [id number] 06/21/2023 702-04-48D / 702--48D / [id number] [employer] Insert Trident 0deg 36mm 723-00-36d - [id number] - [id number] Implanted:Qty: 1 on 08/05/2022 by Cora Alston MD at [facility] Left: Hip [employer] 05/20/2027 723-00-36D / 723-36D / [employer] Accolade 108mm 35mm Modular Hip 127d 5 Taper Stem Femoral Sterile [id number] - [id number] Implanted:Qty: 1 on 08/05/2022 by Cora Alston MD at [facility] Left: Hip [employer] [id number] 06/07/2027 [id number] / / [id number] [employer] V40 36mm Anatomic Hip +5mm Offset Taper Head Femoral Biolox Delta 6570-0-236 - [id number] Implanted:Qty: 1 on 08/05/2022 by Cora Alston MD at [facility] Left: Hip [employer] [id number] 07/02/2025 6570-0-236 / / [id number] [employer] Dx Swivelock Sl 3.5mm 8.5mm Fork Eyelet [place] Suture Sterile Ar-8978p - [id number] Implanted:Qty: 1 on 08/07/2024 by Emely Neves MD at [facility] Left: Middle Finger [employer] [id number] 09/08/2028 AR-8978P / / [id number] [employer] Dx Swivelock Sl 3.5mm 8.5mm Fork Eyelet [place] Suture Sterile Ar-8978p - [id number] Implanted:Qty: 1 on 08/07/2024 by Emely Neves MD at [facility] Left: Middle Finger [employer] [id number] 06/09/2028 AR-8978P / / [id number] Procedures Procedure Name Priority Date/Time Associated Diagnosis Comments SCREENING MAMMOGRAM BILATERAL W SHAQ Schedule Routine, Read Routine (OP Routine) 05/11/2024 2:24 PM CDT BRCA1 genetic carrier from Last 3 Months or Most Recently Relevant to Health Maintenance Results * Screening Mammogram Bilateral W Shaq (05/11/2024 2:24 PM CDT) Anatomical Region Laterality Modality Breast Bilateral Mammography Narrative 05/14/2024 12:46 PM CDT Mammogram Technique: Bilateral Digital Breast Tomosynthesis, Bilateral C-view 2D Screening mammogram. Views obtained: bilateral craniocaudal and bilateral mediolateral oblique. Computer Aided Detection was performed. Mammogram Findings: This is a baseline study. The breasts are heterogeneously dense, which may obscure small masses. There is no suspicious abnormality in either breast. Impression: There is no mammographic evidence of malignancy. Annual screening mammography is recommended. If supplemental screening is desired, breast MRI would be recommended in this patient with heterogeneously dense breasts. OVERALL FINAL ASSESSMENT: BI-RADS CATEGORY 1: Negative. Procedure Note Neela Hauser MD - 05/14/2024 Mammogram Technique: Bilateral Digital Breast Tomosynthesis, Bilateral C-view 2D Screening mammogram. Views obtained: bilateral craniocaudal and bilateral mediolateral oblique. Computer Aided Detection was performed. Mammogram Findings: This is a baseline study. The breasts are heterogeneously dense, which may obscure small masses. There is no suspicious abnormality in either breast. Impression: There is no mammographic evidence of malignancy. Annual screening mammography is recommended. If supplemental screeningis desired, breast MRI would be recommended in this patient with heterogeneously dense breasts. OVERALL FINAL ASSESSMENT: BI-RADS CATEGORY 1: Negative. Sunitha Mercado NP IMG MAMMO PROCEDURES Final Result from Last 3 Months or Most Recently Relevant to Health Maintenance Additional Health Concerns Active Problems Noted Date Diagnosed Date Autogenerated Problem 04/02/2025 Insurance CIGNA IBEW CIGNA Member Subscriber Plan / Payer (Ef fective 2022-Present) Name:Mahi Chadwick Relation to Subscriber:Spouse Name:Reji Chadwick W Date of :1967 (Home) Address: [address] [place] [address] Payer ID:[id number] (NAIC) Group ID:[id number] Type:CIGNA HMO/PPO Address: [facility] [address] [place] [address] CIGNA IBEW Advance Directives For more information, please contact: [phone] * Full Code (Latest Code Status on File) Date Activated Date Inactivated Comments 08/05/2022 11:39 AM 08/05/2022 7:12 PM Care Teams Seo Intern Relationship Specialty Start Date End Date Pierre Sher MD PCP - General Internal Medicine 11/27/20
--- OUTSIDE RECORDS SUMMARY | 2025-04-17 09:51 | XMS_ITS | Referral Summary ---
Author Organization [facility] Address [address] [place] [address] Care Team Providers Care Carpenter Apprentice Name Role Phone Pierre Sher MD Primary Care Provider [phone] Encounters Date Type Department Care Team Description 02/19/2025 Telephone [facility] Surgery [address] [facility] 6th [place] [address] [place] [address] Ant Patiño MD from Last 3 Months Allergies Active Allergy Reactions Criticality Noted Date [...] mouth every 6 (six) hours 10 tablet Active Additional Information Patient not taking.Reported on [...] (08/30/2022): Added automatically from request for surgery [id number] Osteonecrosis of left hip 05/26/2022 Overview (05/26/2022): Added automatically from request for surgery [id number] Immunizations Immunization Administration Dates Next Due Influenza, Quadrivalent, Spl it, Preservative Free, Intramuscular 10/21/2021,09/25/2020 Tdap 11/26/2020 Social History Tobacco Use Types Packs/Day Years [...] on file 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 Gender Identity Female 03/27/2022 4:40 PM CDT Sexual Orientation Straight 03/27/2022 4: 40 PM CDT Last Filed Vital Signs Vital Sign Reading [...] Description 07/11/2025 7:30 AM CDT Hospital Encounter [facility]) [address] [place] [address] Ant Patiño MD [address] [place] [address] 07/11/2025 7:30 AM CDT - 07/11/2025 11:10 AM CDT Surgery [facility]) [address] [place] [address] Ant Patiño MD [address] [place] [address] (COMBO KARISSA / SHE) RECONSTRUCTION BREAST-immediate breast recon Scheduled Procedures Name Priority Associated Diagnoses Date/Ti me RECONSTRUCTION BREAST At high risk for breast cancer 07/11/2025 7:30 AM CDT INSERTION TISSUE REFUELING RAMPMAN - BREAST At high risk for breast cancer 07/11/2025 7:30 AM CDT MASTECTOMY SIMPLE At high risk for breast cancer 07/11/2025 7:30 AM CDT Goals Goal Patient Goal Type Associated Problems Recent Progress Patient-Stated? Author Autogenerat ed Goal Care Plan Autogenerated Problem No [employer] Implanted Type Area Technical Solutions Consultant Device Identifier Shelf Expiration Date Model / Serial / Lot [employer] Screw Bone Trident Ii L25mm Od6.5mm Low Profile Hexagonal Sterile [id number] - [id number] Implanted:Qty: 1 on 08/05/2022 by Cora Alston MD at [facility] Screw Left: Hip [employer] [id number] 07/08/2027 [id number] / / [id number] [employer] Shell Acetabular Trident Ii Tritanium D Od48mm Hip 3 Screw Hole Cluster Sterile 48d - [id number] - [id number] Implanted:Qty: 1 on 08/05/2022 by Cora Alston MD at [facility] Left: Hip [employer] [id number] 06/21/2023 70-04-48D / 48D / [id number] [employer] Insert Trident 0deg 36mm 723-00-36d - [id number] - [id number] Implanted:Qty: 1 on 08/05/2022 by Cora Alston MD at [facility] Left: Hip [employer] 05/20/2027 723-00-36D / 723-36D / [employer] Accolade 108mm 35mm Modular Hip 127d 5 Taper Stem Femoral Sterile [id number] - [id number] Implanted:Qty: 1 on 08/05/2022 by Cora Alston MD at [facility] Left: Hip [employer] [id number] 06/07/2027 [id number] / / [id number] [employer] V40 36mm Anatomic Hip +5mm Offset Taper Head Femoral [employer] Delta 6570-0-236 - [id number] Implanted:Qty: 1 on 08/05/2022 by Cora Alston MD at [facility] Left: Hip [employer] [id number] 07/02/2025 6570-0-236 / / [id number] [employer] Dx Swivelock Sl 3.5mm 8.5mm Fork Eyelet [place] Suture Sterile Ar-8978p - [id number] Implanted:Qty: 1 on 08/07/2024 by Emely Neves MD at [facility] Left: Middle Finger [employer] [id number] 09/08/2028 AR-8978P / / [id number] [employer] Dx Swivelock Sl 3.5mm 8.5mm Fork Eyelet [place] Suture Sterile Ar-8978p - [id number] Implanted:Qty: 1 on 08/07/2024 by Emely Neves MD at [facility] Left: Middle Finger [employer] [id number] 06/09/2028 AR-8978P / / [id number] Procedures Procedure Name Priority Date/Time Associated Diagnosis [...] Diagnosed Date Autogenerated Problem 04/02/2025 Insurance CIGNA Member Subscriber Plan / Payer ( fective 2022-Present) Name:Mahi Chadwick Relation to Subscriber:Spouse Name:Reji Chadwick W Date of :1967 (Home) Address: [address] [id number] Payer ID:[id number] (NAIC) Group ID:[id number] Type:CIGNA HMO/PPO Address: [address] [place] [address] [employer] Advance Directives For more information, please contact: [phone] * Full Code (Latest Code Status on File) Date Activated Date Inactivated Comments 08/05/2022 11:39 AM 08/05/2022 7:12 PM Care Teams Carpenter Apprentice Relationship Specialty Start Date End Date Pierre Sher MD PCP - General Internal Medicine 11/27/20
--- OUTSIDE RECORDS SUMMARY | 2025-04-17 09:51 | XMS_ITS | Data Portability ---
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 level ground, walking downhill/down the stairs, cold/damp weather -Alleviating factors: patient cannot identify alleviating factors -Patient complains of: catching/locking, instability, limited ROM, popping/clicking -Denies: urine/stool incontinence, ecchymosis, drainage, fevers, warmth, numbness, erythema, swelling of surrounding area, tingling, wound/laceration of the affected area -Prior hip/pelvic surgery: yes, described by patient as CLOTILDE, done approximately 2 year(s) ago -Pain impacting ADLs: yes Treatments: -Seen by outside providers: no -Prior imaging/studies:bone scan, CT scan, MRI, ultrasound, X-ray -Prior imaging/studies location:[facility] -Previous treatments: injections, medications, occupational therapy, physical therapy, surgery -Prior injections: did not improve pain, last injection approximately 6 month(s) ago -Prior medications: per patient Diclofenac, last treatment approximately 1 year(s) ago -Prior occupational therapy: did not improve symptoms, last treatment approximately 1 year(s) ago -Denies prior: acupuncture, chiropractic treatments -Prior injury/difficulty with affected area: patient denies Additional Information: -[facility] Referral: No -Concern origination: OTHER Anywhere ROS: General:Negative Cardiac:Negative Respiratory:Negative GI:Negative :Negative Musculoskeletal:Joint Stiffness, Joint Swelling, Other Joint Pain Skin:Negative Neuro:Negative Endo:Negative Hem:Negative Delilah Matthews MD [facility] [place] [address], [phone], [facility] 06/04/2024 09:17:06 4 text/html Mahi Hough a 44 year oldfemalepresenting for care. Walter East MD [address] [place] [address], [phone], [facility] 09/03/2024 21:32:23 OBGyn Episode No OBEpisode recorded.
--- OUTSIDE RECORDS SUMMARY | 2025-04-17 09:51 | XMS_ITS | Encounter Summary ---
Author Organization [facility] Address [address] [place] [address] Phone Care Team Providers Care Chief Specialist Leed Name Role Phone Pierre Sher MD Primary Care Provider [phone] Encounter Details Date Type Department Care Team (Late st Contact Info) Description 11/16/2023 Orders Only [facility] PMR [phone] Scanning, Provider Social History Tobacco Use Types Packs/Day Years Used Date Smoking Tobacco: Former Cigarettes 1 15 0 10/10/2001 - 10/10/2016 Smokeless Tobacco: Never AUDIT-C Answer Date Recorded Q1: How often do you have a drink containing alc ohol? Never 08/30/2022 Average Number of Drinks Not on file 022 Q3: How often do you have si x or more drinks on one occasion? 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 Gender Identity Female 03/27/2022 4:40 PM CDT Sexual Orientation Straight 03/27/2022 4: 40 PM CDT documented as of this encounter Plan of Treatment Upcoming Encounters Date Type Department Care Team (Latest Contact Info) Description 07/11/2025 7:30 AM CDT Hospital Encounter [facility] [address] [place] [id number] Ant Patiño MD [address] [place] [address] 07/11/2025 7:30 AM CDT - 07/11/2025 11:10 AM CDT Surgery [facility] ([facility]) [facility] [place] [address] Ant Patiño MD [address] [place] [address] (COMBO TUNG / MARGENTHALER) RECONSTRUCTION BREAST-immediate breast recon Scheduled Procedures Name Priority Associated Diagnoses Date/Ti me RECONSTRUCTION BREAST At high risk for breast cancer 07/11/2025 7:30 AM CDT INSERTION TISSUE PROVIDER RELATIONS REP - BREAST At high risk for breast cancer 07/11/2025 7:30 AM CDT MASTECTOMY SIMPLE At high risk for breast cancer 07/11/2025 7:30 AM CDT documented as of this encounter Procedures Procedure Name Priority Date/Time Associated Diagnosis Comments SCAN - RADIOLOGY/IMAGING 11/16/2023 documented in this encounter Results * SCAN - RADIOLOGY/IMAGING (11/16/2023) Anatomical Region Laterality Modality Other us Provider Scanning Final Result documented in this encounter Visit Diagnoses Not on filedocumented in this encounter Care Teams Chief Specialist Leed Relationship Specialty Start Date End Date Pierre Sher MD PCP - General Internal Medicine 11/27/20 documented as of this encounter
--- NOTE | 2025-04-17 10:23 | EST_ITS ---
Patient Info Name: Mahi Lopez Age: 45 years : 1980 Gender: Female Ht: 67 in Wt: 165 lbs BSA: 1.89 m2 HR: 61 bpm BP: 119 / 82 mmHg Exam Date: 04/17/2025 10:23 AM Patient Status: O Admit Date: 04/17/2025 Exam Type: CA stress nina w NM A regadenoson stress test was performed. Staff Referring Physician: Elvin Viramontes DO Attending Provider: Elvin Viramontes DO Exercise Technologist: Sabine Macdonald Exercise Physician: Elvin Viramontes DO Summary 1. 1. Negative lexiscan stress test for ischemic ST changes by ECG criteria. 2. 2. Stable hemodynamics throughout the test. 3. 3. Nuclear scan to follow and will be reported separately. Please correlate with it. 4. 4. Patient informed of the above results. Protocol: Lexiscan Stress ECG Details Stage: REST Duration (min): 0 min : 41 sec HR (bpm): 61 SBP (mmHg): 119 DBP (mmHg): 82 Stage: REST Duration (min): 6 min : 42 sec HR (bpm): 64 SBP (mmHg): 119 DBP (mmHg): 82 Stage: STAGE 1 Duration (min): 1 min : 0 sec HR (bpm): 96 SBP (mmHg): 130 DBP (mmHg): 87 Stage: RECOVERY Duration (min): 1 min : 0 sec HR (bpm): 99 SBP (mmHg): 130 DBP (mmHg): 87 Stage: RECOVERY Duration (min): 2 min : 0 sec HR (bpm): 94 SBP (mmHg): 130 DBP (mmHg): 87 Stage: RECOVERY Duration (min): 3 min : 0 sec HR (bpm): 94 SBP (mmHg): 123 DBP (mmHg): 73 Stage: RECOVERY Duration (min): 3 min : 38 sec HR (bpm): 91 SBP (mmHg): 123 DBP (mmHg): 73 Rest HR: 64 bpm Peak HR: 101 bpm Rest Sys BP: 119 mmHg Peak Sys BP: 130 mmHg Max Pred HR: 177 bpm % Max Pred HR: 57 % Target HR: 150 bpm Max RPP: 13,130 bpm*mmHg Termination Reason: Completed protocol Cardiac Symptoms: Shortness of breath Total Time: 1 min : 0 sec Rest Santos BP: 82 mmHg Peak Santos BP: 87 mmHg Total Dose: 0.4 mg Resting ECG Sinus rhythm. Stress ECG No ST changes. Arrhythmias None. Report Signatures
== END 2025-04-17 09:47 | disposition home or self-care (01) ==
PROVIDERS: PCP Internal Medicine; Visit Provider Internal Medicine Cardiovascular Disease
DX: R07.9 Chest pain, unspecified (principal)
CPT/HCPCS: 78452; 93017; A9502; J2785